=== PATIENT | male | born 1990 | race Caucasian/White ===

== ENCOUNTER 2018-09-24 09:41 | Emergency (ER) | payer OTHER, SELFPAY ==
[2018-09-24 09:47] VITALS: BP 141/81; PULSE 80; RESP 14; TEMP 36.7; O2SAT 100
[2018-09-24 09:48] VITALS: BP 141/81; PULSE 80; RESP 14; TEMP 36.7; O2SAT 100; BMI 25.4
--- NOTE | 2018-09-24 10:28 | DI.RAD.S_ITS ---
PROCEDURE: XR LUMBAR SPINE 2-3V INDICATIONS: back pain, acute on chronic. never had xray TECHNIQUE: 3 views of the lumbar spine were acquired. COMPARISON: None. FINDINGS: Bones: There are 5 lumbar-type vertebral bodies. The lowest intervertebral disk space is designated as L5-S1. The vertebral body heights are well-maintained without evidence to suggest an acute compression fracture. The bone mineralization is within normal limits. Mild to moderate degenerative changes of the lumbar spine are best appreciated involving the lower lumbar facet joints. There is moderate disc height loss at L5-S1. There may be grade 1 retrolisthesis of L2 on L3. There also are mild degenerative changes of the sacroiliac joints. Soft tissues: The soft tissues of the imaged abdomen and pelvis are within normal limits. Moderate residual stool seen within the colon. IMPRESSION: 1. No acute osseous abnormality of the lumbar spine. 2. Mild to moderate degenerative changes of the lumbar spine. Dictated by: Luis Bravo M.D. on 09/24/2018 at 10:03 Approved by: Luis Bravo M.D. on 09/24/2018 at 10:08
[2018-09-24] MEDS: KETOROLAC 60 MG/2 ML VIAL IM (10:36)
--- NOTE | 2018-09-24 10:48 | ED_ITS ---
HPI - Back Pain/Injury General Chief Complaint: Back Pain/Injury Stated Complaint: lower back pain Time Seen by Provider: 09/24/18 10:19 Source: patient Mode of arrival: ambulatory Limitations: no limitations History of Present Illness HPI Narrative: This is a 28-year-old male comes in with complaint of back pain patient states he has had back pain for several years. He has seen a primary care and then referred to PT as well as been on ibuprofen regularly. He states this has not been helpful. He states about 2 weeks ago he did More exercise than normal and noticed a little bit of increase in discomfort. This morning he woke up and significantly more pain than normal. Patient states that it was increasing overnight Toradol come up several times. Not taken anything for back pain today. He has some radiation into the buttocks little bit more down the right leg. He does not have any weakness or numbness but states a little bit to tingling. He denies any saddle anesthesia. Denies any bowel or bladder incontinence. He denies any fevers, rashes or other changes. He has not had any recent falls or injuries. patient states that he has never had any imaging of his back. Related Data Home Medications Medication Instructions Recorded Confirmed Vitamin D3 1 cap PO DAILY 09/24/18 09/24/18 Previous Rx's Medication Instructions Recorded prednisone See Rx Instructions .ROUTE 09/24/18 .COMPLEX #15 each tramadol [Ultram] 50 mg PO Q6H PRN #10 tab 09/24/18 Allergies Allergy/AdvReac Type Severity Reaction Status Date / Time No Known Drug Allergies Allergy Verified 09/24/18 09:48 Review of Systems Review of Systems ROS Unobtainable: All systems reviewed & are unremarkable except as noted in HPI and below Constitutional Denies chills, Denies fever(s), Denies lethargy and Denies weakness ENT Ears, Nose, Mouth, and Throat: Denies neck pain Gastrointestinal Gastrointestinal: Denies fecal incontinence Genitourinary Denies urinary frequency, Denies urinary incontinence and Denies urinary urgency Musculoskeletal Reports as per HPI, Reports back pain, Reports limited range of motion, Denies muscle weakness, Denies neck pain, Denies numbness, Reports radiating pain into limb (Right greater than left) and Reports tingling Integumentary/Breasts Denies rash and Denies wounds Neurologic Denies focal weakness, Denies numbness, Denies sensory deficit, Reports tingling and Denies weakness PFSH Social History Smoking Status: Never smoker Social History Smoking Status: Never smoker Exam Narrative Exam Narrative: GENERAL: Alert and oriented x three, patient is in the room in his position of comfort which is lying prone with his left leg on the bed and his right leg hanging off. Patient states this keeps him at about a 2/3 for his pain. HEENT: Head normocephalic, atraumatic, EOMI, pupils reactive, face symmetric, moist mucous membranes NECK: Supple, full range of motion CARDIOVASCULAR: Regular rate and rhythm without murmurs, rubs or gallops. RESPIRATORY: Breath sounds equal bilaterally, no wheezes rales or rhonchi. ABDOMEN: Soft, nontender. Normoactive bowel sounds all 4 quadrants. No guarding or rebound, rigidity, no mass : No CVA tenderness BACK: No cervical, thoracic or lumbar vertebral point tenderness. Patient has decreased range of motion. Patient's gait is antalgic. Rectal exam is deferred. Muscle strength is 5/5 in lower extremities, DTRs are 2/4 and lower extremities. Sensation intact in lower extremities, NVI. EXTREMITIES: Normal range of motion, no clubbing or edema. Neurovascularly intact NEUROLOGICAL: Cranial nerves II through XII grossly intact. Moving all extremities SKIN: Warm, dry, no petechiae, no rashes or lesions. Initial Vital Signs Initial Vital Signs: Vital Signs Temperature 98.0 F 09/24/18 09:47 Pulse Rate 80 09/24/18 09:47 Respiratory Rate 14 09/24/18 09:47 Blood Pressure 141/81 H 09/24/18 09:47 Pulse Oximetry 100 09/24/18 09:47 Course Orders Ordered: ED Orders 09/24/18 10:28 XR lumbar spine 2-3V Stat Discontinued Medications Ketorolac Tromethamine (Toradol) 60 mg IM NOW ONE Stop: 09/24/18 10:29 Last Admin: 09/24/18 10:36 Dose: 60 mg Vital Signs - 8 hr 09/24/18 11:30 Pulse Rate 67 Respiratory Rate 15 Blood Pressure 128/57 L Pulse Oximetry 100 MDM - Back Pain/Injury Imaging Data lumbar xray: Radiologist's impression: 9 Dora Shaw, DO Find Patient Imaging Long Buenrostro 28 M 1990 ACTIVITY DATE EXAM STATUS AUTHOR 09/24/18 10:28 Signed Luis Bravo [address] [address] XRay Report Signed Patient: Long Buenrostro MMR#: [id number] : 1990Acct:[id number] Age/Sex: MDate of Service: 09/24/18 Loc: ED Accession Number: [id number] Procedure: XR lumbar spine 2-3V Ordering Provider: Dora Shaw D.O. PROCEDURE: XR LUMBAR SPINE 2-3V INDICATIONS: back pain, acute on chronic. never had xray TECHNIQUE: 3 views of the lumbar spine were acquired. COMPARISON: None. FINDINGS: Bones: There are 5 lumbar-type vertebral bodies. The lowest intervertebral disk space is designated as L5-S1. The vertebral body heights are well-maintained without evidence to suggest an acute compression fracture. The bone mineralization is within normal limits. Mild to moderate degenerative changes of the lumbar spine are best appreciated involving the lower lumbar facet joints. There is moderate disc height loss at L5-S1. There may be grade 1 retrolisthesis of L2 on L3. There also are mild degenerative changes of the sacroiliac joints. Soft tissues: The soft tissues of the imaged abdomen and pelvis are within normal limits. Moderate residual stool seen within the colon. IMPRESSION: 1. No acute osseous abnormality of the lumbar spine. 2. Mild to moderate degenerative changes of the lumbar spine. Dictated by: Luis Bravo M.D. on 09/24/2018 at 10:03 Approved by: Luis Bravo M.D. on 09/24/2018 at 10:08 [facility] Narrative Medical decision making narrative: Patient drove himself today. Given Toradol and on recheck patient is feeling somewhat better. He is now laying flat on his back and able to ambulate without issue in the department. imaging shows mild to moderate change. Reviewed withp atient. Discussed with patient and plan to continue ibuprofen regularly, also recommended some oral steroids to see if this helps with any inflammation of the nerve and improving his pain we also discussed doing a small amount narcotic pain medication for breakthrough pain. plan for patient to follow up with primary care we did discuss that if he is having worsening symptoms or red flag symptoms he should have an MRI. Discharge Plan Departure Patient Disposition: Home Clinical Impression: Acute exacerbation of chronic low back pain Discharge Date/Time: 09/24/18 11:31 Interventions: ED Discharge Assessment Last Done: 09/24/18 11:30 Instructions: DI for Back Pain With Sciatica Activity Restrictions/Additional Instructions: Follow up with primary care for recheck in the next week. Recommend keeping your appointment for next Thursday. Continue ibprofen up to 600mg every 6 hours as needed for pain/inflammation. Take steroids until completely gone. Take these with food. You may take pain medication as prescribed, this medication can make you sleepy do not drive, perform has activities or make any major decisions while taking it. Return to the emergency department for fevers greater than 100.4F,loss of bowel or bladder control, new weakness or loss of sensation in your lower extremities, inability to lift or move your leg, rapidly worsening symptoms or other new or concerning symptoms. Prescriptions: New tramadol [Ultram] 50 mg tablet 50 mg PO Q6H PRN (Reason: pain) Qty: 10 RF: 0 prednisone 10 mg tablets,dose pack See Rx Instructions .ROUTE .COMPLEX Qty: 15 RF: 0 No Action Vitamin D3 1 cap PO DAILY RF: 0
[2018-09-24 11:30] VITALS: BP 128/57; PULSE 67; RESP 15; O2SAT 100
== END 2018-09-24 11:31 | disposition home or self-care (01) ==
PROVIDERS: Emergency Provider Emergency Medicine
DX: M54.5 Low back pain (principal)
CPT/HCPCS: 72100; 96372; 99282; 99283; J1885